=== PATIENT | male | born 1940 | race Caucasian/White ===

== ENCOUNTER → 2019-03-08 | Outpatient (CLI) | payer MEDICARE ==
[~2019-03-08] MED LIST: ACET325T26 PO; APIX5TAB PO; CELE100C; CYAN1TAB29 PO; DIAZ2TAB3; DIAZ2TAB3 PO; ENAL1TAB5; GABA-826; GABA600T7 PO; LISI-170 PO; OMEP20TA62; OMEP40CA6 PO; ONDA4TAB13 SL; TAMS-11 PO; TERA1CAP3; TRIA1TAB3 PO
[2019-03-08 12:03] LABS: BASOPHILS # (AUTO) 0.02 x10^3/uL (0-0.1); BASOPHILS % (AUTO) 0 % (0-1); EOSINOPHILS # (AUTO) 0.13 x10^3/uL (0-0.4); EOSINOPHILS % (AUTO) 2 % (1-7); LYMPHOCYTES # (AUTO) 2.24 x10^3/uL (1-3.4); LYMPHOCYTES % (AUTO) 39 % (22-44); MD NO; MEAN CORPUSCULAR HGB CONC 33.5 g/dL (33.2-36.2); MEAN CORPUSCULAR VOLUME 95.3 fL (81-97); MEAN PLATELET VOLUME 9.1 fL (7.4-10.4); MONOCYTES # (AUTO) 0.46 x10^3/uL (0.2-0.8); MONOCYTES % (AUTO) 8 % (2-9); NEUTROPHILS # (AUTO) 2.88 x10^3/uL (1.8-6.8); NEUTROPHILS % (AUTO) 50 % (42-75); PLATELET COUNT 166 x10^3/uL (130-400); RED CELL DISTRIBUTION WIDTH 13.3 % (9.4-14.8)
[2019-03-08 12:15] LABS: INTERNATIONAL NORMALIZED RATIO 1.01 (0.93-1.1); PROTHROMBIN TIME 10.6 Seconds (9.6-11.5)
[2019-03-08 12:16] LABS: ALANINE AMINOTRANSFERASE 23 U/L (12-78); ALBUMIN 3.7 g/dL (3.4-5.0); ANION GAP 4 mmol/L (5-15); CALCIUM 8.4 mg/dL (8.5-10.1); CHLORIDE 107 mmol/L (98-107)
[2019-03-08 12:19] LABS: ALKALINE PHOSPHATASE 59 U/L (45-117); BILIRUBIN,TOTAL 0.6 mg/dL (0.2-1.0); CREATININE 1.12 mg/dL (0.7-1.3); TOTAL PROTEIN 6.4 g/dL (6.4-8.2)
== END | disposition home or self-care (01) ==
LOC: STAR 08:00 → EDSTATUS 11:00
PROVIDERS: ATTEND Internal Medicine Cardiovascular Disease
DX: Z01.811 Encounter for preprocedural respiratory examination (principal); J98.4 Other disorders of lung; Z96.9 Presence of functional implant, unspecified; Z79.01 Long term (current) use of anticoagulants
CPT/HCPCS: 36415; 71046; 80053; 85025; 85610; 85730

== ENCOUNTER 2019-03-12 06:37 | Observation (INO) | payer MEDICARE ==
[2019-03-08 12:03] VITALS: BP 148/79
[~2019-03-12] VITALS: Ht 180.3 cm; Wt 99.4 kg
[~2019-03-12 06:37] MED LIST changes: -ACET325T26 PO
[2019-03-12] MEDS: SODIUM CHLORIDE 0.9% 1,000 ML IV SCH ×2 (06:51→14:51)
[2019-03-12] MEDS ORDERED: CEFAZOLIN PMX 1GM/50ML 50 ML IVPB ONE (07:00)
[2019-03-12] MEDS ORDERED: CEFAZOLIN 1,000 MG ONE (08:03)
[2019-03-12] MEDS ORDERED: LIDOCAINE 2%, 20ML ONE (08:03)
[2019-03-12] MEDS ORDERED: FENTANYL PF 250 MCG/5ML ONE (08:06)
[2019-03-12] MEDS ORDERED: PROPOFOL 50 ML ONE (08:06)
[2019-03-12] MEDS ORDERED: SUCCINYLCHOLINE 20 MG/ML, 10ML ONE (08:18)
[2019-03-12] MEDS ORDERED: ONDANSETRON 2MG/ML, 2ML IV PRN (10:00)
[2019-03-12] MEDS ORDERED: DIAZEPAM 5 MG/ML, 2ML IVPush PRN (10:00)
[2019-03-12] MEDS ORDERED: OXYcodone 5 MG/5 ML ORAL.SOL UDC PO PRN (10:00)
[2019-03-12] MEDS ORDERED: HOLD MEDICATION MC PRN ×2 (10:00→12:30)
[2019-03-12] MEDS ORDERED: ACETAMINOPHEN 325 MG TABLET PO PRN (10:00)
[2019-03-12] MEDS ORDERED: FENTANYL PF 100 MCG/2ML IV PRN (10:00)
[2019-03-12] MEDS ORDERED: PROMETHAZINE 25 MG/ML, 1ML IV PRN (10:00)
[2019-03-12] MEDS ORDERED: ONDANSETRON ODT 8 MG PO PRN (10:00)
[2019-03-12] MEDS ORDERED: EPHEDRINE 50 MG/ML, 1ML IVPush PRN (10:00)
[2019-03-12] MEDS ORDERED: DIPHENHYDRAMINE 50 MG/ML, 1ML IVPush PRN (10:00)
[2019-03-12] MEDS ORDERED: DIAZEPAM 2 MG TABLET PO PRN (10:00)
[2019-03-12] MEDS ORDERED: ONDANSETRON ODT 4 MG SL PRN (10:00)
[2019-03-12] MEDS ORDERED: EPHEDRINE 50 MG/ML, 1ML IM PRN (10:00)
[2019-03-12] MEDS ORDERED: MORPHINE SULFATE 4 MG/ML, 1ML IVPush PRN (10:00)
[2019-03-12] MEDS ORDERED: MIDAZOLAM 1 MG/ML, 2ML IV PRN (10:00)
[2019-03-12 11:14] VITALS: BP 149/87
[2019-03-12] MEDS ORDERED: [UNRECOGNIZED DRUG - REMARK] MC SCH (11:30)
[2019-03-12] MEDS: GABAPENTIN 300 MG CAPSULE PO SCH ×3 (12:18→20:55)
[2019-03-12] MEDS: OMEPRAZOLE 20 MG CAPSULE.DR PO SCH ×2 (12:18→17:56)
[2019-03-12 14:11] VITALS: BP 122/75
[2019-03-12] MEDS: CEFAZOLIN PMX 1GM/50ML 50 ML IVPB SCH ×2 (16:18→23:37)
[2019-03-12] MEDS: ACETAMINOPHEN 325 MG TABLET PO PRN (18:02)
[2019-03-12 18:50] VITALS: BP 138/66
[2019-03-12] MEDS: TAMSULOSIN 0.4 MG CAP.ER.24H PO SCH (20:54)
[2019-03-12] MEDS: LISINOPRIL 20 MG TABLET PO SCH (20:54)
[2019-03-12] MEDS: SODIUM CHLORIDE FLUSH 10ML SYR IVF SCH (20:54)
[2019-03-12] MEDS ORDERED: OMEPRAZOLE 20 MG CAPSULE.DR PO SCH ×2 (21:00)
[2019-03-13] MEDS: ACETAMINOPHEN 325 MG TABLET PO PRN ×2 (00:06→09:00)
[2019-03-13 00:50] VITALS: BP 132/68
[2019-03-13] MEDS: GABAPENTIN 300 MG CAPSULE PO SCH (05:01)
[2019-03-13 06:55] VITALS: BP 143/83
[2019-03-13] MEDS: TAMSULOSIN 0.4 MG CAP.ER.24H PO SCH (08:42)
[2019-03-13] MEDS: OMEPRAZOLE 20 MG CAPSULE.DR PO SCH (08:42)
[2019-03-13] MEDS: LISINOPRIL 20 MG TABLET PO SCH (08:43)
[2019-03-13] MEDS: SODIUM CHLORIDE FLUSH 10ML SYR IVF SCH (08:43)
[2019-03-13] MEDS ORDERED: CYANOCOBALOMIN 100MCG TABLET PO SCH (09:00)
[2019-03-13] MEDS ORDERED: LISINOPRIL 10 MG TABLET PO SCH (09:00)
[2019-03-13] MEDS ORDERED: TRIAMTERENE-HCTZ 37.5/25 MG TABLET PO SCH (09:00)
[2019-03-13] MEDS ORDERED: ACET325T26 PO (09:15)
== END 2019-03-13 11:23 | disposition home or self-care (01) ==
LOC: OUT 06:37 → ORIP 09:36 → 5SO 10:56 → DCLOUNGE 03-13 11:10
PROVIDERS: ADMIT Internal Medicine Cardiovascular Disease; ATTEND Internal Medicine Cardiovascular Disease
DX: I50.9 Heart failure, unspecified (principal); I48.91 Unspecified atrial fibrillation; I44.7 Left bundle-branch block, unspecified; R55 Syncope and collapse; R00.1 Bradycardia, unspecified; Z79.01 Long term (current) use of anticoagulants; Z79.899 Other long term (current) drug therapy
CPT/HCPCS: 33208; 33225; 71045; 96365; 96366; C1769; C1779; C1887; C1892; C1900; C2621; G0378; J0330; J0690; J2704; J3010; J3490; Q9967

== ENCOUNTER → 2020-05-05 | Outpatient (CLI) | payer MEDICARE ==
[~2020-05-05] MED LIST changes: +ACET325T26 PO; +OMEP40CA42 PO; -OMEP40CA6 PO
== END | disposition home or self-care (01) ==
LOC: CVU 15:46
PROVIDERS: ATTEND Internal Medicine Clinical Cardiac Electrophysiology
DX: I08.0 Rheumatic disorders of both mitral and aortic valves (principal); I10 Essential (primary) hypertension; I48.91 Unspecified atrial fibrillation; I44.7 Left bundle-branch block, unspecified
CPT/HCPCS: 93306

== ENCOUNTER 2020-05-13 15:27 | Inpatient (IN) | payer MEDICARE ==
[~2020-05-13] VITALS: Ht 177.8 cm; Wt 100.7 kg
[2020-05-13] MEDS ORDERED: DILT120C80 PO (15:51)
[2020-05-13] MEDS ORDERED: FLEC50TA25 PO (15:51)
[2020-05-13] MEDS ORDERED: TRIA1TAB3 PO (15:51)
[2020-05-13] MEDS: SODIUM CHLORIDE 0.9% 1,000 ML IV SCH ×2 (16:00→22:11)
--- NOTE | 2020-05-13 16:06 | NUR ---
[facility] in [facility] - 05/13/20 at 1616 by JENNY URINE CATH DONE, URINE WALKED TO LAB
--- NOTE | 2020-05-13 16:16 | NUR ---
STATES SUBSTERNAL CP STARTING THIS AM 700, STATES HX OF AFIB AND PACER. SENT BY CARDIOLOGY. PT STATES DIZZINESS WELL. PT IN BED IN GOWN WITH CONT MARKETING SUMMER INTERN, SPO2,BP Q 30 MIN, SIDE RAILS UP X2. CP (PRESSURE)
[2020-05-13] MEDS ORDERED: NITROGLYCERIN OINT 2%, 1GM TP ONE ×2 (16:22→17:00)
[2020-05-13] MEDS ORDERED: ONDANSETRON ODT 4 MG ONE (16:22)
[2020-05-13] MEDS ORDERED: MAALOX/HYOSCYAMINE/LIDOCAINE 45 ML BTL ONE (16:22)
[2020-05-13 16:43] LABS: MEAN CORPUSCULAR HEMOGLOBIN 31.9 pg (27.5-34.5); MEAN CORPUSCULAR HGB CONC 33.1 g/dL (33.2-36.2); MEAN CORPUSCULAR VOLUME 96.4 fL (81-97); MEAN PLATELET VOLUME 9.4 fL (7.4-10.4); PLATELET COUNT 196 x10^3/uL (130-400); RED BLOOD COUNT 5.05 x10^6/uL (4.38-5.82); RED CELL DISTRIBUTION WIDTH 13.1 % (9.4-14.8)
[2020-05-13 16:53] LABS: CALCIUM 9.6 mg/dL (8.5-10.1); CHLORIDE 100 mmol/L (98-107)
--- NOTE | 2020-05-13 16:58 | NUR ---
PT REPORTS LEFT SIDE JAW PAIN MD NOTIFIED, REPEAT EKG DONE NITRO PUT ON PT'S CHEST. PT REPORTS JAW PAIN IS GONE AND HIS CHEST PRESSURE IN MUCH BETTER. MD NOTIFIED
[2020-05-13] MEDS ORDERED: MAALOX/HYOSCYAMINE/LIDOCAINE 45 ML BTL PO ONE (17:00)
[2020-05-13] MEDS ORDERED: ONDANSETRON ODT 4 MG PO ONE (17:00)
[2020-05-13 17:01] LABS: ALBUMIN 4.1 g/dL (3.4-5.0); ANION GAP 8 mmol/L (5-15); CREATININE 1.02 mg/dL (0.7-1.3); TROPONIN I < 0.015 ng/mL (0.000-0.045)
[2020-05-13 17:32] LABS: BASOPHILS # (AUTO) 0.03 x10^3/uL (0-0.1); BASOPHILS % (AUTO) 0 % (0-1); EOSINOPHILS # (AUTO) 0.03 x10^3/uL (0-0.4); EOSINOPHILS % (AUTO) 0 % (1-7); LYMPHOCYTES # (AUTO) 2.34 x10^3/uL (1-3.4); LYMPHOCYTES % (AUTO) 28 % (22-44); MONOCYTES # (AUTO) 0.57 x10^3/uL (0.2-0.8); MONOCYTES % (AUTO) 7 % (2-9); NEUTROPHILS # (AUTO) 5.29 x10^3/uL (1.8-6.8); NEUTROPHILS % (AUTO) 64 % (42-75)
[2020-05-13 17:33] LABS: MD NO
[2020-05-13] MEDS ORDERED: SODIUM CHLORIDE FLUSH 10ML SYR IVF PRN (18:30)
[2020-05-13] MEDS ORDERED: MELATONIN 5 MG TABLET PO PRN (19:00)
[2020-05-13] MEDS ORDERED: hydrALAzine 20 MG/ML, 1ML IVPush PRN (19:00)
[2020-05-13] MEDS ORDERED: DOCUSATE 100 MG CAPSULE PO PRN (19:00)
[2020-05-13] MEDS ORDERED: ACETAMINOPHEN 325 MG TABLET PO PRN (19:00)
[2020-05-13] MEDS ORDERED: DIAZEPAM 2 MG TABLET PO PRN (19:00)
[2020-05-13 20:49] VITALS: BP 121/70
[2020-05-13] MEDS: FLECAINIDE 50MG TABLET PO SCH (22:11)
[2020-05-13] MEDS: TAMSULOSIN 0.4 MG CAP.ER.24H PO SCH (22:11)
[2020-05-13 22:13] LABS: TROPONIN I < 0.015 ng/mL (0.000-0.045)
[2020-05-14 01:14] VITALS: BP 114/69
[2020-05-14 03:51] LABS: BASOPHILS # (AUTO) 0.02 x10^3/uL (0-0.1); BASOPHILS % (AUTO) 0 % (0-1); EOSINOPHILS # (AUTO) 0.14 x10^3/uL (0-0.4); EOSINOPHILS % (AUTO) 2 % (1-7); LYMPHOCYTES # (AUTO) 2.38 x10^3/uL (1-3.4); LYMPHOCYTES % (AUTO) 39 % (22-44); MD NO; MEAN CORPUSCULAR HEMOGLOBIN 31.7 pg (27.5-34.5); MEAN CORPUSCULAR HGB CONC 32.6 g/dL (33.2-36.2); MEAN CORPUSCULAR VOLUME 97.2 fL (81-97); MEAN PLATELET VOLUME 8.5 fL (7.4-10.4); MONOCYTES # (AUTO) 0.48 x10^3/uL (0.2-0.8); MONOCYTES % (AUTO) 8 % (2-9); NEUTROPHILS # (AUTO) 3.08 x10^3/uL (1.8-6.8); NEUTROPHILS % (AUTO) 51 % (42-75); PLATELET COUNT 172 x10^3/uL (130-400); RED BLOOD COUNT 4.34 x10^6/uL (4.38-5.82); RED CELL DISTRIBUTION WIDTH 12.8 % (9.4-14.8)
[2020-05-14 04:00] LABS: ANION GAP 6 mmol/L (5-15); CALCIUM 8.1 mg/dL (8.5-10.1); CHLORIDE 105 mmol/L (98-107); CREATININE 1.07 mg/dL (0.7-1.3)
[2020-05-14 04:04] LABS: TROPONIN I 0.017 ng/mL (0.000-0.045)
[2020-05-14 07:22] VITALS: BP 115/65
[2020-05-14] MEDS: SODIUM CHLORIDE 0.9% 1,000 ML IV SCH ×2 (08:00→18:00)
[2020-05-14] MEDS ORDERED: DILTIAZEM 120 MG CAP.ER.24H PO SCH (09:00)
[2020-05-14] MEDS ORDERED: TRIAMTERENE-HCTZ 37.5/25 MG TABLET PO SCH (09:00)
[2020-05-14] MEDS: TAMSULOSIN 0.4 MG CAP.ER.24H PO SCH (09:21)
[2020-05-14] MEDS: FLECAINIDE 50MG TABLET PO SCH (09:21)
[2020-05-14] MEDS ORDERED: VERAPAMIL 2.5 MG/ML, 2ML ONE (12:30)
[2020-05-14] MEDS ORDERED: MIDAZOLAM 1 MG/ML, 2ML ONE (12:30)
[2020-05-14] MEDS ORDERED: FENTANYL PF 100 MCG/2ML ONE (12:30)
[2020-05-14] MEDS ORDERED: LIDOCAINE-MPF 1%, 5ML ONE (12:30)
[2020-05-14] MEDS ORDERED: HEPARIN 1,000 UNITS/ML, 10ML ONE (12:31)
[2020-05-14 14:15] VITALS: BP 122/65
== END 2020-05-14 18:31 | disposition home or self-care (01) | DRG 287 ==
LOC: ED 16:34 → EDIP 18:04 → 5SO 18:50
PROVIDERS: ADMIT Internal Medicine; ATTEND Internal Medicine
PROC: 4A023N7 Measurement of Cardiac Sampling and Pressure, Left Heart, Percutaneous Approach (ICD-10-PCS; principal; 2020-05-14)
PROC: B2111ZZ Fluoroscopy of Multiple Coronary Arteries using Low Osmolar Contrast (ICD-10-PCS; 2020-05-14)
PROC: B2151ZZ Fluoroscopy of Left Heart using Low Osmolar Contrast (ICD-10-PCS; 2020-05-14)
DX: I48.0 Paroxysmal atrial fibrillation (principal); I24.9 Acute ischemic heart disease, unspecified; J98.11 Atelectasis; D68.59 Other primary thrombophilia; I10 Essential (primary) hypertension; N40.0 Benign prostatic hyperplasia without lower urinary tract symptoms; G47.33 Obstructive sleep apnea (adult) (pediatric); I27.20 Pulmonary hypertension, unspecified; I44.7 Left bundle-branch block, unspecified; Z79.01 Long term (current) use of anticoagulants; Z83.3 Family history of diabetes mellitus; Z87.891 Personal history of nicotine dependence; Z95.0 Presence of cardiac pacemaker
CPT/HCPCS: 36415; 71045; 80048; 82040; 83735; 84100; 84484; 85025; 93005; 93458; C1769; C1894; G0378; J1644; J2250; J3010; Q0162; J7030; Q9967

== ENCOUNTER → 2020-07-14 | Outpatient (CLI) | payer MEDICARE ==
[~2020-07-14] MED LIST changes: +DILT120C80 PO; +FLEC50TA25 PO; +OMNIPAQUE 350 MG/ML, 100ML BOTTLE ONE
== END | disposition home or self-care (01) ==
LOC: CFH 10:35
PROVIDERS: ATTEND Internal Medicine Cardiovascular Disease
DX: Z01.818 Encounter for other preprocedural examination (principal); I48.91 Unspecified atrial fibrillation; R05 Cough
CPT/HCPCS: 71046; 75572; Q9967

== ENCOUNTER 2020-07-17 06:19 | Observation (INO) | payer MEDICARE ==
[~2020-07-17] VITALS: Ht 177.8 cm; Wt 104.0 kg
[~2020-07-17 06:19] MED LIST changes: -OMNIPAQUE 350 MG/ML, 100ML BOTTLE ONE
[2020-07-17] MEDS ORDERED: SODIUM CHLORIDE 0.9% 1,000 ML IV ONE (07:00)
[2020-07-17] MEDS ORDERED: SODIUM CHLORIDE 0.9% 1,000 ML IV SCH (07:00)
[2020-07-17] MEDS ORDERED: ASCO500T8 PO (07:15)
[2020-07-17] MEDS ORDERED: FLUT9.9S NAS (07:15)
[2020-07-17] MEDS ORDERED: VITA100T PO (07:15)
[2020-07-17 07:25] LABS: BASOPHILS % (AUTO) 1 % (0-1); EOSINOPHILS % (AUTO) 3 % (1-7); LYMPHOCYTES % (AUTO) 39 % (22-44); MEAN CORPUSCULAR HEMOGLOBIN 31.7 pg (27.5-34.5); MEAN CORPUSCULAR HGB CONC 33.1 g/dL (33.2-36.2); MEAN PLATELET VOLUME 9.1 fL (7.4-10.4); MONOCYTES % (AUTO) 8 % (2-9); NEUTROPHILS % (AUTO) 49 % (42-75); PLATELET COUNT 179 x10^3/uL (130-400); RED BLOOD COUNT 4.91 x10^6/uL (4.38-5.82); RED CELL DISTRIBUTION WIDTH 12.9 % (9.4-14.8)
[2020-07-17 07:31] LABS: MD NO
[2020-07-17] MEDS ORDERED: FENTANYL PF 250 MCG/5ML ONE (07:38)
[2020-07-17] MEDS ORDERED: LIDOCAINE 2%, 20ML ONE (07:57)
[2020-07-17] MEDS ORDERED: PROTAMINE SULFATE 10 MG/ML, 5ML ONE (07:57)
[2020-07-17] MEDS ORDERED: HYDROmorphone 1 MG/ML, 1ML INJ IVPush PRN (08:00)
[2020-07-17] MEDS ORDERED: LABETALOL 5MG/ML, 20ML IV PRN (08:00)
[2020-07-17] MEDS ORDERED: EPHEDRINE 50 MG/ML, 1ML IVPush PRN (08:00)
[2020-07-17] MEDS ORDERED: hydrALAzine 20 MG/ML, 1ML IV PRN (08:00)
[2020-07-17] MEDS ORDERED: ONDANSETRON 2MG/ML, 2ML IVPush PRN (08:00)
[2020-07-17] MEDS ORDERED: MEPERIDINE/PF 25MG/0.5ML IVPush PRN (08:00)
[2020-07-17] MEDS ORDERED: ACETAMINOPHEN 325 MG TABLET PO PRN (08:00)
[2020-07-17] MEDS ORDERED: PROMETHAZINE 25 MG/ML, 1ML IVPush PRN (08:00)
[2020-07-17] MEDS ORDERED: OXYcodone 5 MG/5 ML ORAL.SOL UDC PO PRN (08:00)
[2020-07-17] MEDS ORDERED: LIDOCAINE-MPF 2% ,5ML ONE (08:15)
[2020-07-17] MEDS ORDERED: PHENYLEPHRINE 10 MG/ML ONE ×2 (08:15→08:27)
[2020-07-17] MEDS ORDERED: DEXAMETHASONE 4 MG/ML, 1ML ONE (08:16)
[2020-07-17] MEDS ORDERED: ONDANSETRON 2MG/ML, 2ML ONE (08:16)
[2020-07-17] MEDS ORDERED: PROPOFOL 10 MG/ML, 20ML ONE (08:16)
[2020-07-17] MEDS ORDERED: SUGAMMADEX 200 MG/2 ML IVPush ONE (08:16)
[2020-07-17] MEDS ORDERED: SUCCINYLCHOLINE 20 MG/ML, 10ML ONE (08:16)
[2020-07-17] MEDS ORDERED: HEPARIN 1,000 UNITS/ML, 10ML ONE ×3 (08:16→09:12)
[2020-07-17] MEDS ORDERED: ROCURONIUM 10MG/ML,5ML ONE ×2 (08:16→09:09)
[2020-07-17] MEDS ORDERED: EPINEPHRINE 1 MG/ML, 1ML ONE (08:25)
[2020-07-17] MEDS ORDERED: VASOPRESSIN 20 UNIT/ML, 1ML ONE (08:54)
[2020-07-17] MEDS ORDERED: DIAZEPAM 2 MG TABLET PO PRN (11:30)
[2020-07-17] MEDS ORDERED: APIXABAN 5 MG TABLET ONE (12:09)
[2020-07-17] MEDS ORDERED: FENTANYL PF 100 MCG/2ML ONE (12:09)
[2020-07-17] MEDS ORDERED: OXYcodone 5 MG/5 ML ORAL.SOL UDC ONE (12:10)
[2020-07-17] MEDS: FENTANYL PF 100 MCG/2ML IV PRN ×2 (12:17→12:24)
[2020-07-17] MEDS: APIXABAN 5 MG TABLET PO SCH ×2 (12:20→21:31)
[2020-07-17] MEDS ORDERED: APIXABAN 5 MG TABLET PO ONE (12:30)
[2020-07-17 14:28] VITALS: BP 122/71
[2020-07-17] MEDS ORDERED: CODEINE SULFATE 30 MG TABLET PO PRN (16:00)
[2020-07-17 19:28] VITALS: BP 142/66
[2020-07-17] MEDS: FLECAINIDE 50MG TABLET PO SCH (21:31)
[2020-07-17] MEDS: COLCHICINE 0.6 MG CAPSULE PO SCH (21:31)
[2020-07-17] MEDS: TAMSULOSIN 0.4 MG CAP.ER.24H PO SCH (21:31)
[2020-07-17] MEDS: ACETAMINOPHEN 325 MG TABLET PO PRN (22:37)
[2020-07-18 00:03] VITALS: BP 120/69
[2020-07-18] MEDS ORDERED: PANTOPRAZOLE 40MG TABLET PO SCH (06:00)
[2020-07-18 08:04] VITALS: BP 127/66
[2020-07-18] MEDS ORDERED: ASCORBIC ACID 500 MG TABLET PO SCH (09:00)
[2020-07-18] MEDS ORDERED: TRIAMTERENE-HCTZ 37.5/25 MG TABLET PO SCH (09:00)
[2020-07-18] MEDS: ACETAMINOPHEN 325 MG TABLET PO PRN (09:08)
[2020-07-18] MEDS: COLCHICINE 0.6 MG CAPSULE PO SCH (09:08)
[2020-07-18] MEDS: FLECAINIDE 50MG TABLET PO SCH (09:08)
[2020-07-18] MEDS: TAMSULOSIN 0.4 MG CAP.ER.24H PO SCH (09:08)
[2020-07-18] MEDS: APIXABAN 5 MG TABLET PO SCH (09:09)
[2020-07-18] MEDS ORDERED: COLC0.6T37 PO (13:38)
[2020-07-18] MEDS ORDERED: PANT40TA6 PO (13:38)
== END 2020-07-18 15:58 | disposition home or self-care (01) ==
LOC: CACL 06:19 → ORIP 11:30 → 5SO 13:27 → DCLOUNGE 07-18 15:42
PROVIDERS: ADMIT Internal Medicine Cardiovascular Disease; ATTEND Internal Medicine Cardiovascular Disease
DX: I48.0 Paroxysmal atrial fibrillation (principal); Z20.828 Contact with and (suspected) exposure to other viral communicable diseases; I10 Essential (primary) hypertension; Z79.01 Long term (current) use of anticoagulants; Z79.899 Other long term (current) drug therapy
CPT/HCPCS: 36415; 85025; 85347; 93005; 93308; 93312; 93321; 93325; 93613; 93655; 93656; 93657; 93662; C1730; C1732; C1759; C1766; C1893; C1894; G0378; J0171; J0330; J1100; J1644; J2370; J2405; J2704; J3010; J3490; 87635; J2720

== ENCOUNTER → 2020-12-08 | Outpatient (CLI) | payer MEDICARE ==
[~2020-12-08] MED LIST changes: +ASCO500T8 PO; +COLC0.6T37 PO; +FLUT9.9S NAS; +PANT40TA6 PO; +VITA100T PO
[2020-12-08 12:08] LABS: BASOPHILS % (AUTO) 1 % (0-1); EOSINOPHILS % (AUTO) 4 % (1-7); LYMPHOCYTES % (AUTO) 31 % (22-44); MEAN CORPUSCULAR HEMOGLOBIN 32.6 pg (27.5-34.5); MEAN CORPUSCULAR HGB CONC 34.2 g/dL (33.2-36.2); MEAN PLATELET VOLUME 9.6 fL (7.4-10.4); MONOCYTES % (AUTO) 7 % (2-9); NEUTROPHILS % (AUTO) 58 % (42-75); PLATELET COUNT 170 x10^3/uL (130-400); RED BLOOD COUNT 4.63 x10^6/uL (4.38-5.82); RED CELL DISTRIBUTION WIDTH 12.8 % (9.4-14.8)
[2020-12-08 12:11] LABS: MD NO
[2020-12-08 12:28] LABS: ANION GAP 5 mmol/L (5-15); CALCIUM 8.8 mg/dL (8.5-10.1); CHLORIDE 106 mmol/L (98-107); CREATININE 1.15 mg/dL (0.7-1.3)
== END | disposition home or self-care (01) ==
LOC: LAB 11:38
PROVIDERS: ATTEND Internal Medicine Clinical Cardiac Electrophysiology
DX: Z51.81 Encounter for therapeutic drug level monitoring (principal); I48.91 Unspecified atrial fibrillation
CPT/HCPCS: 36415; 80048; 85025